=== PATIENT | female | born 1950 | race American Indian/Alaskan Native ===

== ENCOUNTER 2020-04-05 11:20 | Emergency (ER) | payer MEDICARE ==
[2020-04-05 11:28] VITALS: BP 174/84
[2020-04-05] MEDS ORDERED: HYDROcodone/ACETAMINOPHEN 5-325 MG TAB PO STA (13:58)
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
== END 2020-04-05 16:28 | disposition home or self-care (01) ==
LOC: ED 11:20
DX: S30.1XXA Contusion of abdominal wall, initial encounter (principal); S40.012A Contusion of left shoulder, initial encounter; E11.9 Type 2 diabetes mellitus without complications; Z79.899 Other long term (current) drug therapy; Z88.0 Allergy status to penicillin; Z98.890 Other specified postprocedural states; V89.2XXA Person injured in unspecified motor-vehicle accident, traffic, initial encounter; Y93.89 Activity, other specified; Y92.410 Unspecified street and highway as the place of occurrence of the external cause; Y99.8 Other external cause status
CPT/HCPCS: 99283

== ENCOUNTER 2020-05-17 12:49 | Emergency (ER) | payer MEDICARE ==
[2020-05-17 13:04] VITALS: BP 164/86
--- NOTE | 2020-05-17 14:14 | Emergency Department Report ---
ED General Adult HPI - General Chief complaint: Headache Stated complaint: HEADACHE, DIZZY Time Seen by Provider: 05/17/20 14:11 Source: patient Mode of arrival: Ambulatory Limitations: No Limitations - History of Present Illness Initial comments: 69 y/o female presents to Ed c/o dull aching frontal headache associated with occasional dizziness off an on for the last 2 or so weeks. . -: Gradual Location: head, neck Severity scale (0 -10): 5 Quality: aching Consistency: intermittent Improves with: cold therapy Worsens with: none Associated Symptoms: denies: confusion, chest pain, cough, diaphoresis, loss of appetite, nausea/vomiting, syncope Treatments Prior to Arrival: none - Related Data Previous Rx's Medication Instructions Recorded Last Taken Type Famciclovir [Famvir] 500 mg PO Q8H #21 tablet 10/19/13 Unknown Rx HYDROcodone/APAP 10-325 [[place] 1 each PO Q4-6H PRN #30 tablet 10/19/13 Unknown Rx 10-325 mg TAB] Meloxicam [Mobic] 15 mg PO DAILY #10 tablet 04/05/20 Unknown Rx Methocarbamol [Robaxin] 500 mg PO TID #20 tablet 04/05/20 Unknown Rx Allergies Allergy/AdvReac Type Severity Reaction Status Date / Time Penicillins Allergy Hives Verified 10/19/13 06:21 ED Review of Systems ROS: Stated complaint: HEADACHE, DIZZY Other details as noted in HPI Comment: All other systems reviewed and negative ED Past Medical Hx - Past Medical History Previous Medical History?: Yes Hx Diabetes: Yes - Surgical History Past Surgical History?: Yes Additional Surgical History: 2 c-sections - Social History Smoking Status: Never Smoker Substance Use Type: None - Medications Home Medications: Home Medications Medication Instructions Recorded Confirmed Last Taken Type Famciclovir [Famvir] 500 mg PO Q8H #21 tablet 10/19/13 Unknown Rx HYDROcodone/APAP 10-325 [[place] 1 each PO Q4-6H PRN #30 tablet 10/19/13 Unknown Rx 10-325 mg TAB] Meloxicam [Mobic] 15 mg PO DAILY #10 tablet 04/05/20 Unknown Rx Methocarbamol [Robaxin] 500 mg PO TID #20 tablet 04/05/20 Unknown Rx ED Physical Exam - General Limitations: No Limitations General appearance: alert, in no apparent distress - Head Head exam: Present: atraumatic, normocephalic - Eye Eye exam: Present: normal appearance, PERRL, EOMI Pupils: Present: normal accommodation - ENT ENT exam: Present: mucous membranes moist - Neck Neck exam: Present: normal inspection - Respiratory Respiratory exam: Present: normal lung sounds bilaterally. Absent: respiratory distress - Cardiovascular Cardiovascular Exam: Present: regular rate, normal rhythm. Absent: systolic murmur, diastolic murmur, rubs, gallop - GI/Abdominal GI/Abdominal exam: Present: soft, normal bowel sounds - Extremities Exam Extremities exam: Present: normal inspection - Back Exam Back exam: Present: normal inspection - Neurological Exam Neurological exam: Present: alert, oriented X3, CN II-XII intact, normal gait, reflexes normal. Absent: motor sensory deficit - Psychiatric Psychiatric exam: Present: normal affect, normal mood. Absent: anxious, flat affect - Skin Skin exam: Present: warm, dry, intact, normal color. Absent: rash ED Course Vital Signs 05/17/20 12:57 Temperature 97.9 F Pulse Rate 77 Respiratory 16 Rate Blood Pressure 164/86 [Right] O2 Sat by Pulse 100 Oximetry ED Medical Decision Making - Medical Decision Making This patient presents with a headache. Differential diagnosis includes migraine versus tension type headache. No headache red flags. Neurologic exam without evidence of meningismus, focal neurologic findings.Based on the patient's history and physical there is very low clinical suspicion for significant intracranial pathology. The headache was NOT sudden onset, NOT maximal at onset, there are NO neurologic findings, the patient does NOT have a fever, the patient does NOT have any jaw claudication, the patient does NOT endorse a clotting disorder, patient DENIES any trauma or eye pain and the headache is NOT associated with dizziness or ataxia. Presentation not consistent with acute intracranial bleed to include SAH (lack of risk factors, headache history). Presentation not consistent with acute [employer] infection to include meningitis or brain abscess, Temporal arteritis unlikely, as is acute angle closure glaucoma given history and physical findings. Presentation not consistent with other acute, emergent causes of headache at this time. Plan to treat symptomatically with pain medication. No indication for imaging/LP at this time. Plan: Critical care attestation.: If time is entered above; I have spent that time in minutes in the direct care of this critically ill patient, excluding procedure time. ED Disposition Clinical Impression: Headache, HTN (hypertension) Disposition: DC-01 TO HOME OR SELFCARE Is pt being admited?: No Does the pt Need Aspirin: No Condition: Stable Instructions: Hypertension, Adult, [id number], Hypertension, Adult, Hypertension (ED) Additional Instructions: Please be sure to follow-up with the listed providers to establish with a primary care provider for further evaluate and treat your hypertension as needed. Referrals: JACKSON WARE MD [Staff Physician] - 3-5 Days [facility] [Provider Group] - 3-5 Days
== END 2020-05-17 14:23 | disposition home or self-care (01) ==
LOC: ED 12:49
DX: I10 Essential (primary) hypertension (principal); R51.9 Headache, unspecified; E11.9 Type 2 diabetes mellitus without complications; Z79.899 Other long term (current) drug therapy; Z88.0 Allergy status to penicillin; Z98.890 Other specified postprocedural states
CPT/HCPCS: 99282